=== PATIENT | male | born 1955 | race Two or more races ===

== ENCOUNTER → 2023-12-31 | Outpatient (CLI) | payer MEDICARE, MEDICAID, SELFPAY ==
--- NOTE | 2023-12-31 12:30 | XR_ITS ---
Examination: Retroperitoneal ultrasound, complete Technique: Multiple high resolution grayscale images of the retroperitoneum obtained, including kidneys and bladder. Exam date and time:December 31, 2023 at 1205 hours INDICATIONS: Left flank pain beginning several months ago, microscopic hematuria on laboratory examination performed 2 weeks ago FINDINGS: Right kidney 10.2 x 6.5 x 7.7 cm renal cortex 2.6 cm Upper pole 24 mm cyst midpole cyst 17 mm, 12 mm Left kidney 12.5 x 6.2 x 5.6 cm renal cortex 2.3 cm Lateral midpole cyst 4.8 cm Mild to moderate bilateral renal parenchymal scar formation No hydronephrosis No bladder mass or bladder calculi Bladder prevoid volume 96 cc unable to void Significant prostatomegaly, volume 115.4 cc no prostate nodules IMPRESSION: Mild to moderate bilateral renal parenchymal scar formation, no hydronephrosis Prominent prostatomegaly
== END | disposition home or self-care (01) ==
PROVIDERS: PCP Family Medicine; Referring Provider Family Medicine; Visit Provider Family Medicine
DX: N28.89 Other specified disorders of kidney and ureter (principal); N40.0 Benign prostatic hyperplasia without lower urinary tract symptoms
CPT/HCPCS: 76770

== ENCOUNTER → 2024-02-26 | Outpatient (CLI) | payer MEDICARE, MEDICAID, SELFPAY ==
--- NOTE | 2024-02-26 09:00 | XR_ITS ---
Examination: CT abdomen, without intravenous contrast. CT abdomen, with intravenous contrast. Sagittal and coronal 2-D reconstructions. Time of exam:February 26, 2024 0910 hours INDICATIONS: Abdominal pain 5 months, hernia repair 5 years ago CTDI: vol (mGy) 17.7 DLP: (mGycm) 611 Technique: Multiple 3.0 mm axial noncontrast images of the abdomen have been obtained. Multiple 3.0 mm axial images post administration 60 cc Isovue-370 intravenous contrast have been obtained. Sagittal and coronal 3-D reconstructions have been obtained. Low dose protocols were performed. One or more of the following dose reduction techniques were used; automated exposure control, adjustment of the mA and/or KV according to patient size, use of iterative reconstruction technique. Findings: Small liver cysts Absent gallbladder Spleen not enlarged No pancreatic or adrenal mass Bilateral renal cysts, the largest lateral left kidney 4.5 cm 4 mm soft calcification lower pole left kidney No hydronephrosis No bowel obstruction Normal appendix No diverticulitis IMPRESSION: Benign liver and renal cysts 4 mm nonobstructing calculus lower pole left kidney
== END | disposition home or self-care (01) ==
PROVIDERS: PCP Family Medicine; Referring Provider Family Medicine; Visit Provider Family Medicine
DX: N28.1 Cyst of kidney, acquired (principal); N20.0 Calculus of kidney
CPT/HCPCS: 74170; A4649; Q9967

== ENCOUNTER 2024-11-16 06:15 | Day surgery (SDC) | payer MEDICARE, MEDICAID, SELFPAY ==
[2024-11-15 10:33] VITALS: BMI 30.2
[2024-11-16] VITALS (8 sets, daily range): BP systolic 123–154; BP diastolic 82–98; PULSE 58–70; RESP 16–21; TEMP 36.3–36.6; O2SAT 94–97; BMI 28.2
[2024-11-16] MEDS: SODIUM CHLORIDE 0.9% 500 ML 500 ML 20 ML IV (07:44)
== END 2024-11-16 08:35 | disposition home or self-care (01) ==
PROVIDERS: PCP Family Medicine; Referring Provider Surgery; Visit Provider Surgery
PROC: 0DJD8ZZ Inspection of Lower Intestinal Tract, Via Natural or Artificial Opening Endoscopic (ICD-10-PCS; CPT 45378; principal; 2024-11-16 07:30)
DX: K64.1 Second degree hemorrhoids (principal); R10.32 Left lower quadrant pain; Z86.0100 Personal history of colon polyps, unspecified; K42.9 Umbilical hernia without obstruction or gangrene; N40.0 Benign prostatic hyperplasia without lower urinary tract symptoms; K21.9 Gastro-esophageal reflux disease without esophagitis; I10 Essential (primary) hypertension; Z79.899 Other long term (current) drug therapy
CPT/HCPCS: 45378; A4649; J1200; J2250; J3010; J7999